=== PATIENT | female | born 1990 | race Caucasian/White ===

== ENCOUNTER 2016-03-31 11:13 | Emergency (ER) | payer MEDICAID ==
[2016-03-31] MEDS ORDERED: Acetaminophen TAB* 325 MG PO ONE (12:35)
[2016-03-31 13:47] VITALS: BP 95/45
--- NOTE | 2016-04-04 21:45 | UC ---
Michelle Tang Michael, scribed for Vi Tucker MD on 03/31/16 at 1242 . FLU HPI - HPI Summary HPI Summary: 25 y/o female comes to [facility] presenting with flu like symptoms that started one day ago after she received her tetanus shot. The pt reports that she always becomes "sick" after getting her tetanus shot. She c/o a fever and at Urgent Care she presents a temperature of 101.9. She also c/o chills, nausea, SOB, myalgia, diaphoresis, chest congestion, PARK, and nasal congestion. The pt denies vomiting. The pt had a flu shot in December. The pt is 28 weeks 7 days gestation age. She is . The LNMP was not recalled by the pt and the due date is 06/18/16 - History of Current Complaint Chief Complaint: UC Stated Complaint: FLU SYMPTOMS Time Seen by Provider: 03/31/16 12:34 Hx Obtained From: Patient, Medical Records Hx Last Menstrual Period: EDC 06/18/2016 Onset/Duration: Sudden Onset, Lasting Days, Still Present Severity Currently: Moderate Severity Initially: Moderate Pain Intensity: 8 Pain Scale Used: 0-10 Numeric Associated Signs & Symptoms: Positive: Fever, Myalgia, Nasal Congestion - chest congestion. diaphoresis. chills. SOB. nausea., Headache. Negative: Vomiting - Allergy/Home Medications Allergies/Adverse Reactions: Allergies Allergy/AdvReac Type Severity Reaction Status Date / Time No Known Allergies Allergy Verified 03/31/16 12:03 Home Medications: Home Medications One-A-Day 03/31/16 [History] PMH/Surg Hx/FS Hx/Imm Hx Endocrine History Of: Denies: Diabetes, Thyroid Disease Cardiovascular History Of: Denies: Cardiac Disorders, Hypertension Respiratory History Of: Reports: Asthma Denies: COPD GI/ History Of: Denies: Ulcer - Surgical History Surgical History: None - Family History Family History: Parents alive and well. Pt denies significant FHx. - Social History Occupation: Student Lives: Alone Alcohol Use: None Substance Use Type: None Smoking Status (MU): Never Smoked Tobacco - Immunization History Most Recent Influenza Vaccination: DECEMBER 2015 Review of Systems Constitutional: Fever, Chills, Other - diaphoresis ENT: Other - nasal congestion. chest congestion. Respiratory: Shortness Of Breath Gastrointestinal: Vomiting - negative, Other - nausea Musculoskeletal: Myalgia All Other Systems Reviewed And Are Negative: Yes Physical Exam Triage Information Reviewed: Yes Vital Signs: Initial Vital Signs Temp 101.9 F 03/31/16 12:06 Pulse 133 03/31/16 12:06 Resp 20 03/31/16 12:06 BP 101/64 03/31/16 12:06 Pulse Ox 100 03/31/16 12:06 Vital Signs Reviewed: Yes - Additional Comments Appearance: Ill-appearing, no pain distress, Well-nourished, Fundal height of 5 cm above umbilicus and I can feel child kicking. Eyes: Conjunctiva clear ENT: TMs Nml. pharyngeal erythema. tonsillar swelling and no exudate. Neck: Supple Respiratory: Lungs clear, Normal breath sounds, no respiratory distress Cardio: RRR, No murmur, pulses normal, brisk capillary refill Musculoskeletal: Strength Intact, ROM intact Neuro: Alert, muscle tone normal Psychological: Normal Skin: Normal Flu Course/Dx - Course Course Of Treatment: Influenza A and B neg. UA with wbc's, sent for culture. FHR 180 - Differential Dx/Diagnosis Differential Diagnosis/HQI/PQRI: Bronchitis, Influenza, Upper Respiratory Infection, Other - UTI Provider Diagnoses: fever. UTI in . third trimester Discharge - Discharge Plan Condition: Stable Disposition: HOME Prescriptions: Cephalexin CAP* [Keflex 500 CAP*] 500 mg PO QID #40 cap Patient Education Materials: Fever in Adults (ED), Urinary Tract Infection in (ED) Forms: *Work Release Referrals: Shelli Seo DO [Primary Care Provider] - Additional Instructions: Your swab was negative for influenza A and B. Your urine showed 75 wbc's which may indicate a urinary infection, which is more serious in , and more serious when there is fever so Dr. Tucker is starting the antibiotic now, Cephalexin 500mg 4x a day for 10 days. They may call you to discontinue this antibiotic if the culture does not show a true infection. You were given acetaminophen (tylenol) 650mg at 12:43pm. You may take this every four hours as needed for fever. Have definite follow up with your OB provider on 04/02/16. Go to the emergency room if you have new or worsening symptoms. Dr. Tucker recommends that you should lie on your left side to increase blood flow to the baby when you are lying down. The baby's heart rate was 180 today in urgent care. The documentation as recorded by the justiceibMichelle samuels Michael accurately reflects the service I personally performed and the decisions made by me, Vi Tucker MD.
== END 2016-03-31 13:47 | disposition home or self-care (01) ==
LOC: UCEAST 11:13
DX: O23.43 Unspecified infection of urinary tract in pregnancy, third trimester (principal); Z3A.28 28 weeks gestation of pregnancy; R50.9 Fever, unspecified
CPT/HCPCS: 81002; 87077; 87086; 87502; 99212; A9270-GY; G0463

== ENCOUNTER 2016-06-17 09:52 | Inpatient (IN) | payer MEDICAID ==
[2016-06-17 10:37] LABS: ROM Internal QC QC Line Present
[2016-06-17 11:15] LABS: Hematocrit 29 % (35-47); Hemoglobin 9.2 g/dl (12.0-16.0); Mean Corpuscular HGB Conc 32 g/dl (31-36); Mean Corpuscular Hemoglobin 26 pg (27-31); Mean Corpuscular Volume 81 fL (80-97); Mean Platelet Volume 8 um3 (7.4-10.4); Red Blood Count 3.52 10^6/ul (4.0-5.4); Red Cell Distribution Width 14 % (10.5-15); White Blood Count 10.8 10^3/ul (3.5-10.8)
[2016-06-17] MEDS ORDERED: Misoprostol TAB* 100 MCG PO ONE (12:04)
[2016-06-17] MEDS ORDERED: Misoprostol TAB* 100 MCG VAGINAL ONE (15:52)
[2016-06-17] MEDS ORDERED: Oxytocin in LR* 20 UNITS/1,000 ML BAG IVPB ONE (20:38)
[2016-06-17] MEDS ORDERED: Oxytocin in LR* 20 UNITS/1,000 ML BAG IVPB SCH (21:00)
[2016-06-18] MEDS ORDERED: OBEPIDURAL* 250 ML ONE (01:09)
[2016-06-18] MEDS ORDERED: Famotidine TAB* 20 MG PO PRN (07:56)
[2016-06-18] MEDS ORDERED: Sodium Citrate/Citric Acid* 15 ML UDC PO PRN (07:56)
[2016-06-18] MEDS ORDERED: EPHEDrine (Pressors)* 50 MG/ML VIAL IV PUSH PRN ×2 (07:56)
[2016-06-18] MEDS ORDERED: Phenylephrine IV* 40 MCG/ML 10 ML SYRINGE IV PUSH PRN ×2 (07:56)
[2016-06-18] MEDS ORDERED: OBEPIDURAL* 250 ML EPIDURAL SCH (08:00)
[2016-06-18] MEDS ORDERED: Ammonia Inhalant* 1 EA AMP ONE (11:15)
[2016-06-18] MEDS ORDERED: Witch Hazel PAD* JAR TOPICAL PRN (11:47)
[2016-06-18] MEDS ORDERED: Acetaminophen TAB* 325 MG PO PRN (11:47)
[2016-06-18] MEDS ORDERED: Dibucaine 1% 28.35 GM TUBE PR PRN (11:47)
[2016-06-18] MEDS ORDERED: Glycerin ADULT SUPP PR PRN (11:47)
[2016-06-18] MEDS ORDERED: oxyCODONE/Acetamin 5/325 MG* TAB PO PRN (11:47)
[2016-06-18] MEDS ORDERED: Oxytocin in LR* 20 UNITS/1,000 ML BAG IVPB SCH (11:48)
[2016-06-18] MEDS: Docusate CAP* 100 MG PO SCH ×2 (14:01→22:30)
[2016-06-18] MEDS: Ibuprofen TAB* 600 MG PO PRN (17:53)
[2016-06-19] MEDS: Ibuprofen TAB* 600 MG PO PRN ×4 (00:39→22:47)
[2016-06-19] MEDS: Docusate CAP* 100 MG PO SCH ×3 (08:15→20:43)
[2016-06-19 09:18] LABS: Hematocrit 28 % (35-47); Hemoglobin 8.8 g/dl (12.0-16.0); Mean Corpuscular HGB Conc 32 g/dl (31-36); Mean Corpuscular Hemoglobin 26 pg (27-31); Mean Corpuscular Volume 82 fL (80-97); Mean Platelet Volume 8 um3 (7.4-10.4); Red Blood Count 3.36 10^6/ul (4.0-5.4); Red Cell Distribution Width 14 % (10.5-15); White Blood Count 16.6 10^3/ul (3.5-10.8)
[2016-06-19] MEDS: Ferrous Gluconate TAB* 324 MG TAB PO SCH ×2 (09:41→20:43)
[2016-06-20] MEDS: Ibuprofen TAB* 600 MG PO PRN ×2 (06:08→12:15)
[2016-06-20 08:07] VITALS: BP 98/57
[2016-06-20] MEDS: Ferrous Gluconate TAB* 324 MG TAB PO SCH (08:50)
[2016-06-20] MEDS: Docusate CAP* 100 MG PO SCH ×2 (08:50→12:15)
--- NOTE | 2016-06-20 13:13 | PTEDU ---
Patient Name: CHELSIE CHI CHELSIE CHI selected video: Follow Me Mum: [employer] Success[employer] to view on 06/20/2016 at 1:12:21 PM from [id number]
== END 2016-06-20 13:47 | disposition home or self-care (01) | DRG 560 ==
LOC: MCHOBOUT 09:52 → MCHOB 10:50
PROVIDERS: ADMIT Midwife; ATTEND Midwife
PROC: 10E0XZZ Delivery of Products of Conception, External Approach (ICD-10-PCS; principal; 2016-06-18)
DX: O99.824 Streptococcus B carrier state complicating childbirth (principal); O99.344 Other mental disorders complicating childbirth; D64.9 Anemia, unspecified; O90.81 Anemia of the puerperium; Z3A.40 40 weeks gestation of pregnancy; Z37.0 Single live birth
CPT/HCPCS: 36415; 84112; 85025; 85027; 86850; 86900; 86901; A9270-GY; S0191

== ENCOUNTER 2017-01-04 09:24 | Emergency (ER) | payer MEDICAID ==
[2017-01-04 09:35] VITALS: BP 108/66
--- NOTE | 2017-01-04 09:40 | UC ---
Respiratory Complaint HPI - HPI Summary HPI Summary: 26 yo female with runny nose/cough/post nasal drip low grade temp x 4 days she [facility] twins at 9 weeks gestation pt is having morning sickness - History of Current Complaint Chief Complaint: UCGeneralIllness Stated Complaint: SINUS CONGESTION Time Seen by Provider: 01/04/17 09:33 Hx Obtained From: Patient Hx Last Menstrual Period: EDC 06/18/2016 Onset/Duration: Sudden Onset, Lasting Days Timing: Constant Severity Initially: Mild Severity Currently: Moderate Pain Intensity: 4 Pain Scale Used: 0-10 Numeric Character: Cough: Nonproductive Aggravating Factors: Nothing Alleviating Factors: Nothing Associated Signs And Symptoms: Positive: Fever, Chills, Nasal Congestion - Allergies/Home Medications Allergies/Adverse Reactions: Allergies Allergy/AdvReac Type Severity Reaction Status Date / Time No Known Allergies Allergy Verified 01/04/17 09:31 Home Medications: Home Medications NK [No Home Medications Reported] 01/04/17 [History Confirmed 01/04/17] PMH/Surg Hx/FS Hx/Imm Hx Previously Healthy: Yes Respiratory History: Asthma, Bronchitis - Surgical History Surgical History: None - Family History Known Family History: Positive: Hypertension, Other - muliplte twins on her dad' s side Family History: Parents alive and well. Pt denies significant FHx. - Social History Alcohol Use: None Substance Use Type: None Smoking Status (MU): Never Smoked Tobacco - Immunization History Most Recent Influenza Vaccination: Not UTD Most Recent Pneumonia Vaccination: never Review of Systems Constitutional: Fever, Chills, Fatigue ENT: Nasal Discharge, Sinus Congestion Respiratory: Cough Gastrointestinal: Nausea Is Patient Immunocompromised?: No All Other Systems Reviewed And Are Negative: Yes Physical Exam Triage Information Reviewed: Yes Appearance: Well-Appearing, No Pain Distress, Well-Nourished Vital Signs: Initial Vital Signs Temp 98.2 F 01/04/17 09:26 Pulse 101 01/04/17 09:26 Resp 16 01/04/17 09:26 BP 108/66 01/04/17 09:26 Pulse Ox 100 01/04/17 09:26 Eyes: Positive: Conjunctiva Clear ENT: Positive: Hearing grossly normal, Nasal congestion, Nasal drainage, TMs normal, Uvula midline. Negative: Pharyngeal erythema, Tonsillar swelling, Tonsillar exudate, Trismus, Muffled voice, Dental tenderness, Sinus tenderness Neck: Positive: Supple, Nontender, No Lymphadenopathy Respiratory: Positive: Lungs clear, Normal breath sounds, No respiratory distress, No accessory muscle use Cardiovascular: Positive: RRR, No Murmur Abdomen Description: Positive: Nontender, No Organomegaly, Soft Musculoskeletal: Positive: Strength Intact, ROM Intact Neurological: Positive: Alert Psychological Exam: Normal Skin Exam: Normal UC Diagnostic Evaluation - Laboratory O2 Sat by Pulse Oximetry: 100 - normal/not hypoxic Diagnostic Studies Comment: RAPID FLU (-). U dip : no ketones Respiratory Course/Dx - Differential Dx/Diagnosis Provider Diagnoses: viral URI. Morning sickness Discharge - Discharge Plan Condition: Stable Disposition: HOME Patient Education Materials: Nausea and Vomiting in (ED), Upper Respiratory Infection (ED) Referrals: Roger Marin MD [Medical Doctor] - Additional Instructions: I suggest: EMETROL (OTC) for nausea vits plus folate (folic acid) start your flonase saline nasal spray 2 x daily warm facial compresses rest tylenol recheck for new or worsening symptoms recheck in 3-4 days if not better
== END 2017-01-04 10:30 | disposition home or self-care (01) ==
LOC: UCEAST 09:24
DX: O99.511 Diseases of the respiratory system complicating pregnancy, first trimester (principal); J06.9 Acute upper respiratory infection, unspecified; O21.9 Vomiting of pregnancy, unspecified; Z3A.09 9 weeks gestation of pregnancy
CPT/HCPCS: 81003; 87502; 99212; G0463

== ENCOUNTER 2017-01-15 07:35 | Emergency (ER) | payer MEDICAID ==
[2017-01-15 07:59] VITALS: BP 102/81
[2017-01-15] MEDS ORDERED: Metoclopramide IV* 5 MG/ML 2 ML VIAL IV SLOW PU ONE (08:10)
[2017-01-15] MEDS ORDERED: NS 0.9% 1000 ML* 1,000 ML IV ONE ×2 (08:11→09:34)
--- NOTE | 2017-01-15 10:17 | UC ---
Harry Tang Benjamin, scribed for Nathaniel Sanchez MD on 01/15/17 at 0810 . General HPI - HPI Summary HPI Summary: 10-week 26yo female c/o N/V/D since last night. 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 Pt reports vomiting 4 times total, and 1 episode of diarrhea. Pt also reports chills and cold sweats last night. Pt also reports loss of appetite. Pt is on Diclegis and metoclopramide. - History of Current Complaint Stated Complaint: VOMITTING Hx Obtained From: Patient Hx Last Menstrual Period: EDC 06/18/2016 Onset/Duration: Sudden Onset, Lasting Hours, Still Present Timing: Constant Onset Severity: Mild Current Severity: None Pain Intensity: 0 Pain Location at: None Associated Signs & Symptoms: Positive: Diarrhea - x1, Nausea, Vomiting - x4, Other - chills - Allergy/Home Medications Allergies/Adverse Reactions: Allergies Allergy/AdvReac Type Severity Reaction Status Date / Time No Known Allergies Allergy Verified 01/15/17 07:59 Home Medications: Home Medications Doxylamine/Pyridoxine(NF) [Diclegis (NF)] 1 tab PO DAILY PRN 01/15/17 [History Confirmed 01/15/17] Metoclopramide HCl 10 mg PO Q8HR 01/15/17 [History Confirmed 01/15/17] PMH/Surg Hx/FS Hx/Imm Hx Previously Healthy: Yes - Surgical History Surgical History: None - Family History Known Family History: Positive: Hypertension, Other - muliplte twins on her dad' s side Family History: Parents alive and well. Pt denies significant FHx. - Social History Occupation: Employed Full-time Lives: With Family Alcohol Use: None Substance Use Type: None Smoking Status (MU): Never Smoked Tobacco - Immunization History Most Recent Influenza Vaccination: DECEMBER 2015 Most Recent Pneumonia Vaccination: never Review of Systems Constitutional: Chills, Other - night sweats Skin: Negative Eyes: Negative ENT: Negative Respiratory: Negative Cardiovascular: Negative Gastrointestinal: Vomiting, Diarrhea, Nausea Genitourinary: Negative Motor: Negative Neurovascular: Negative Musculoskeletal: Negative Neurological: Negative Psychological: Negative All Other Systems Reviewed And Are Negative: Yes Physical Exam Triage Information Reviewed: Yes Appearance: Well-Appearing, No Pain Distress Vital Signs: Initial Vital Signs Temp 98.6 F 01/15/17 07:56 Pulse 114 01/15/17 07:56 Resp 16 01/15/17 07:56 BP 102/81 01/15/17 07:56 Pulse Ox 97 01/15/17 07:56 Vital Signs Reviewed: Yes ENT: Positive: Normal ENT inspection, Pharynx normal Neck: Positive: Supple, Nontender. Negative: Nuchal Rigidity Respiratory: Positive: Chest non-tender, Lungs clear Cardiovascular: Positive: RRR, No Murmur, Pulses Normal Abdomen Description: Positive: Nontender Musculoskeletal: Positive: Strength Intact, ROM Intact Neurological: Positive: Alert, Muscle Tone Normal Psychological: Positive: Normal Response To Family Skin Exam: Normal Re-Evaluation - Re-Evaluation First Eval Re-Evaluation Time: 10:08 Change: Improved Comment: Patient no more NV, and heart rate better. Ambulatory to rest room. Course/Dx - Course Course Of Treatment: Reviewed pts medication and allergy lists. Blood pressure noted. The patient is well hydrated now after IV fluids, and non toxic. Note for work given - Differential Dx - Multi-Symptom Provider Diagnoses: gastroenteritis. dehydration Discharge - Discharge Plan Condition: Good Disposition: HOME Patient Education Materials: Gastroenteritis (ED) Forms: *Work Release Referrals: Nathaniel Mayes MD [Primary Care Provider] - 1 Day The documentation as recorded by the Harry hart Benjamin accurately reflects the service I personally performed and the decisions made by me, Nathaniel Sanchez MD.
== END 2017-01-15 10:40 | disposition home or self-care (01) ==
LOC: UCEAST 07:35
DX: O26.891 Other specified pregnancy related conditions, first trimester (principal); Z3A.10 10 weeks gestation of pregnancy; K52.9 Noninfective gastroenteritis and colitis, unspecified; E86.0 Dehydration
CPT/HCPCS: 87502; 96360; 96361; 96374; 99212; G0463; J2765

== ENCOUNTER 2017-07-22 07:50 | Inpatient (IN) | payer OTHER ==
--- NOTE | 2017-07-22 09:12 | HP ---
General Information - General Information Maternal Age: 26 Grav: 2 Para: 1 SAB: 0 IEA: 0 Estimated Due Date: 08/05/17 Determined By: LMP Gestational Age in Weeks and Days: 38 Weeks and 0 Days Maternal Blood Type and Rh: O Positive - Results this Serology/RPR Result: Non-Reactive Rubella Result: Immune HBsAg Result: Negative HIV Result: Negative GBS Culture Result: Negative Past Medical History Delivery History: Hx Uncomplicated Vaginal Delivery Pertinent Past Medical History: Non-Contributory Pertinent Past Surgical History: None Pertinent Family History: Non-Contributory - Antepartal Records Antepartal Records: Reviewed, Complicated by: - mono/di twins Review of Systems Constitutional: Comfortable CV Complaint: No Respiratory: Shortness of Breath: No Gastrointestinal: No Nausea/Vomiting Genitourinary: No Dysuria, No Bleeding, No Leaking Fluid Musculoskeletal: No Complaint Movement: Normal Exam Allergies/Adverse Reactions: Allergies No Known Allergies Allergy (Verified 01/15/17 07:59) - Measurements Height: 5 ft 6 in Weight: 170 lb Weight in lbs: 170 Body Mass Index (BMI): 27.4 Pre- Weight: 143 lb Weight Gained This : 27 lbs and 0 ozs - Exam Abdomen: No Upper Quadrant Pain Breast: Breast Exam Deferred Extremities: No Edema Heart: Normal Rhythm/Heart Sounds HEENT: No Significant Findings Targeted Exam Findings Cervical Exam: 1cm Effacement: 50% Station: -2 Presenting Part: Vertex Membrane Status: AROM Amniotic Fluid Evaluation: Clear EFM Findings - External Monitor Findings Baseline Heart Rate: 135 - 135 External Monitor Findings: Accelerations Present, No Pattern of Variable or Late Decelerations, Variability Moderate, Baseline Stable Contractions: Irregular Assessment/Plan - Reason for Visit Reason for Visit: @38wks with mono/di twins for induction of labor. Has a 13mo daughter. - Obstetrical Risk Factors Risk Factors Comment: twins - Plan Plan: Induction
[2017-07-22 09:29] LABS: ABS Basophils 0 10^3/ul (0-0.2); ABS Eosinophils 0.1 10^3/ul (0-0.6); ABS Monocytes 0.5 10^3/ul (0-0.8); ABS Neutrophils 6.6 10^3/ul (1.5-7.7); ABS Nucleated RBC 0 10^3/ul; Eosinophil % 1.2 % (0-6); Hematocrit 28 % (35-47); Hemoglobin 8.8 g/dl (12.0-16.0); Lymphocyte % 21.4 % (25-47); Mean Corpuscular HGB Conc 32 g/dl (31-36); Mean Corpuscular Hemoglobin 24 pg (27-31); Mean Corpuscular Volume 76 fL (80-97); Mean Platelet Volume 9.4 um3 (7.4-10.4); Nucleated Red Blood Cells % 0.1; Platelet Count 238 10^3/ul (150-450); Red Blood Count 3.62 10^6/ul (4.0-5.4); Red Cell Distribution Width 16 % (10.5-15); White Blood Count 9.1 10^3/ul (3.5-10.8)
[2017-07-22] MEDS ORDERED: Oxytocin in LR* 20 UNITS/1,000 ML BAG IVPB SCH (16:00)
[2017-07-23] MEDS ORDERED: OBEPIDURAL* 250 ML EPIDURAL ONE (03:12)
[2017-07-23] MEDS ORDERED: Phenylephrine IV* 40 MCG/ML 10 ML SYRINGE IV PUSH PRN ×2 (04:50)
[2017-07-23] MEDS ORDERED: Famotidine TAB* 20 MG PO PRN (04:50)
[2017-07-23] MEDS ORDERED: EPHEDrine (Pressors)* 50 MG/ML VIAL IV PUSH PRN ×2 (04:50)
[2017-07-23] MEDS ORDERED: Sodium Citrate/Citric Acid* 15 ML UDC PO PRN (04:50)
[2017-07-23] MEDS ORDERED: OBEPIDURAL* 250 ML EPIDURAL SCH (05:00)
[2017-07-23] MEDS ORDERED: Promethazine INJ(RESTRICTED)* 25 MG/ML 1 ML VIAL ONE (10:55)
[2017-07-23] MEDS ORDERED: Promethazine INJ(RESTRICTED)* 25 MG/ML 1 ML VIAL IV ONE (11:00)
[2017-07-23] MEDS ORDERED: Acetaminophen TAB* 325 MG PO PRN (14:21)
[2017-07-23] MEDS ORDERED: Misoprostol TAB* 200 MCG PR ONE (14:21)
[2017-07-23] MEDS ORDERED: Witch Hazel PAD* JAR TOPICAL PRN (14:21)
[2017-07-23] MEDS ORDERED: Glycerin ADULT SUPP PR PRN (14:21)
[2017-07-23] MEDS ORDERED: Dibucaine 1% 28.35 GM TUBE PR PRN (14:21)
[2017-07-23] MEDS: Ibuprofen TAB* 600 MG PO PRN ×2 (16:13→22:55)
[2017-07-23] MEDS ORDERED: Simethicone TAB* 80 MG TAB.CHEW PO SCH (17:30)
[2017-07-23] MEDS: Docusate CAP* 100 MG PO SCH (22:55)
[2017-07-24] MEDS: Ibuprofen TAB* 600 MG PO PRN ×3 (04:21→21:33)
[2017-07-24 08:39] LABS: ABS Basophils 0 10^3/ul (0-0.2); ABS Eosinophils 0.2 10^3/ul (0-0.6); ABS Lymphocytes 2.4 10^3/ul (1.0-4.8); ABS Monocytes 0.7 10^3/ul (0-0.8); ABS Neutrophils 8.9 10^3/ul (1.5-7.7); ABS Nucleated RBC 0 10^3/ul; Eosinophil % 1.4 % (0-6); Hematocrit 24 % (35-47); Hemoglobin 7.4 g/dl (12.0-16.0); Lymphocyte % 19.6 % (25-47); Mean Corpuscular HGB Conc 31 g/dl (31-36); Mean Corpuscular Hemoglobin 24 pg (27-31); Mean Corpuscular Volume 77 fL (80-97); Mean Platelet Volume 8.7 um3 (7.4-10.4); Nucleated Red Blood Cells % 0; Platelet Count 217 10^3/ul (150-450); Red Blood Count 3.12 10^6/ul (4.0-5.4); Red Cell Distribution Width 16 % (10.5-15); White Blood Count 12.2 10^3/ul (3.5-10.8)
[2017-07-24] MEDS: Ferrous Gluconate TAB* 324 MG TAB PO SCH ×2 (10:48→21:32)
[2017-07-24] MEDS: Docusate CAP* 100 MG PO SCH ×3 (10:48→21:32)
[2017-07-25 07:39] VITALS: BP 100/68
[2017-07-25] MEDS: Docusate CAP* 100 MG PO SCH (10:10)
[2017-07-25] MEDS: Ibuprofen TAB* 600 MG PO PRN (10:10)
[2017-07-25] MEDS: Ferrous Gluconate TAB* 324 MG TAB PO SCH (10:10)
== END 2017-07-25 11:52 | disposition home or self-care (01) | DRG 560 ==
LOC: MCHOBOUT 07:50 → MCHOB 08:23
PROVIDERS: ADMIT Obstetrics & Gynecology; ATTEND Obstetrics & Gynecology
PROC: 10907ZC Drainage of Amniotic Fluid, Therapeutic from Products of Conception, Via Natural or Artificial Opening (ICD-10-PCS; principal; 2017-07-22)
PROC: 3E033VJ Introduction of Other Hormone into Peripheral Vein, Percutaneous Approach (ICD-10-PCS; 2017-07-22)
PROC: 10E0XZZ Delivery of Products of Conception, External Approach (ICD-10-PCS; 2017-07-22)
PROC: 4A1HX4Z Monitoring of Products of Conception, Cardiac Electrical Activity, External Approach (ICD-10-PCS; 2017-07-22)
DX: O32.8XX2 Maternal care for other malpresentation of fetus, fetus 2 (principal); O30.033 Twin pregnancy, monochorionic/diamniotic, third trimester; Z3A.38 38 weeks gestation of pregnancy; Z37.2 Twins, both liveborn; O90.81 Anemia of the puerperium
CPT/HCPCS: 36415; 85025; 86850; 86900; 86901; 88307; A9270-GY; J2550

== ENCOUNTER 2018-07-11 15:14 | Emergency (ER) | payer OTHER ==
[2018-07-11 15:30] VITALS: BP 110/69
--- NOTE | 2018-07-11 15:38 | UC ---
Skin Complaint HPI - HPI Summary HPI Summary: 27-year-old woman comes in with a chief complaint of a bump just underneath the skin on the back of her neck. She found this yesterday. No fevers no chills no rash. No new shampoos. No ear pain no upper respiratory tract infection symptoms. Has not noticed any other bumps anywhere. - History of Current Complaint Chief Complaint: UCSkin Time Seen by Provider: 07/11/18 15:26 Stated Complaint: BUMP ON NECK Hx Last Menstrual Period: 1 week Pain Intensity: 0 - Allergy/Home Medications Allergies/Adverse Reactions: Allergies Allergy/AdvReac Type Severity Reaction Status Date / Time No Known Allergies Allergy Verified 07/11/18 15:30 PMH/Surg Hx/FS Hx/Imm Hx Previously Healthy: Yes - Surgical History Surgical History: None - Family History Known Family History: Positive: Hypertension, Other - muliplte twins on her dad' s side Family History: Parents alive and well. Pt denies significant FHx. - Social History Alcohol Use: None Substance Use Type: None Smoking Status (MU): Never Smoked Tobacco - Immunization History Most Recent Influenza Vaccination: Fall 2016 Most Recent Pneumonia Vaccination: never Review of Systems All Other Systems Reviewed And Are Negative: Yes Constitutional: Positive: Negative Skin: Positive: Other - SEE HPI Eyes: Positive: Negative ENT: Positive: Negative Respiratory: Positive: Negative Cardiovascular: Positive: Negative Gastrointestinal: Positive: Negative Genitourinary: Positive: Negative Motor: Positive: Negative Neurovascular: Positive: Negative Musculoskeletal: Positive: Negative Neurological: Positive: Negative Psychological: Positive: Negative Is Patient Immunocompromised?: No Physical Exam Triage Information Reviewed: Yes Appearance: Well-Appearing, No Pain Distress, Well-Nourished Vital Signs: Initial Vital Signs Temp 98.5 F 07/11/18 15:27 Pulse 80 07/11/18 15:27 Resp 16 07/11/18 15:27 BP 110/69 07/11/18 15:27 Pulse Ox 99 07/11/18 15:27 Vital Signs Reviewed: Yes Eye Exam: Normal Eyes: Positive: Conjunctiva Clear ENT: Positive: Pharynx normal, TMs normal. Negative: Nasal congestion, Nasal drainage Neck: Positive: Supple, Enlarged Nodes @ - SINGLE MOBILE 5MM NODE RT POSTERIOR UPPER NECK Respiratory: Positive: Lungs clear, Normal breath sounds, No respiratory distress Cardiovascular: Positive: RRR Musculoskeletal: Positive: Strength Intact, ROM Intact Neurological: Positive: Alert Psychological Exam: Normal Psychological: Positive: Normal Response To Family, Age Appropriate Behavior Skin: Positive: Other - No other lymphadenopathy found in neck or supra clavicular. Patient denies any else where. Course/Dx - Course Course Of Treatment: The swelling in the posterior upper cervical skin is mobile feels like it is a swollen lymph node. I do not see any irritation or rash in the scalp. Ear was fine. Did not find any other lymphadenopathy when I palpated the neck and supraclavicular region. Patient herself has checked underneath her arms and in her inguinal areas and says there is no swelling there. Right now the plan is to treat with Keflex 500 mg by mouth 3 times a day for 10 days and have this rechecked with her primary care doctor in 2-3 weeks. I discussed with her that if it does not improve she needs further evaluation to include the possibility of leukemia lymphoma. She told me she'll be calling her primary care doctor today to arrange for follow-up. - Diagnoses Provider Diagnosis: Posterior cervical lymphadenopathy Discharge - Sign-Out/Discharge Documenting (check all that apply): Patient Departure All imaging exams completed and their final reports reviewed: No Studies - Discharge Plan Condition: Stable Disposition: HOME Prescriptions: Cephalexin CAP* [Keflex CAP*] 500 mg PO TID #30 cap Patient Education Materials: Lymphadenopathy (ED) Referrals: Nathaniel Mayes MD [Primary Care Provider] - Additional Instructions: FOLLOW UP WITH YOUR DOCTOR IN 2-3 WEEKS. GET RECHECKED SOONER IF YOUR CONDITION WORSENS OR ANY QUESTIONS OR CONCERNS. - Billing Disposition and Condition Condition: STABLE Disposition: Home
== END 2018-07-11 15:46 | disposition home or self-care (01) ==
LOC: UCEAST 15:14
DX: R59.0 Localized enlarged lymph nodes (principal)
CPT/HCPCS: 99212; G0463

== ENCOUNTER 2020-03-29 00:54 | Inpatient (IN) ==
[2020-03-29] MEDS ORDERED: NS 0.9% 1000 ml BAG 1,000 ML IV ONE ×2 (04:07→05:34)
[2020-03-29] MEDS ORDERED: Ondansetron 4 mg VIAL 2 MG/ML 2 ml VIAL IV ONE (04:07)
[2020-03-29] MEDS ORDERED: Pantoprazole VIAL 40 MG VIAL IV ONE (04:07)
[2020-03-29 04:54] LABS: ABS Eosinophils 0.1 10^3/ul (0-0.6); ABS Monocytes 0.5 10^3/ul (0-0.8); ABS Neutrophils 4.6 10^3/ul (1.5-7.7); Eosinophil % 1.6 %; Hematocrit 46 % (35-47); Hemoglobin 15.9 g/dL (12.0-16.0); Lymphocyte % 36.3 %; Mean Corpuscular HGB Conc 35 g/dL (31-36); Mean Corpuscular Hemoglobin 31 pg (27-31); Mean Corpuscular Volume 91 fL (80-97); Mean Platelet Volume 8.7 fL (7.4-10.4); Platelet Count 262 10^3/uL (150-450); Red Cell Distribution Width 12 % (10-15); White Blood Count 8.3 10^3/uL (3.5-10.8)
[2020-03-29 05:05] LABS: ALT 14 U/L (7-52); Albumin 4.9 g/dL (3.2-5.2); Albumin/Globulin Ratio 1.6 (1-3); Alkaline Phosphatase 70 U/L (34-104); Amylase 24 U/L (29-103); BUN/Creatinine Ratio 41.8 (8-20); Blood Urea Nitrogen 41 mg/dL (6-24); C Reactive Protein 5.72 mg/L (<8.01); CO2 Carbon Dioxide 18 mmol/L (22-32); Calcium 10.9 mg/dL (8.6-10.3); Chloride 90 mmol/L (101-111); EGFR African American 82.4 (>60); EGFR Non-African American 68.1 (>60); Globulin 3.1 g/dL (2-4); Glucose 96 mg/dL (70-100); Lipase 17 U/L (11.0-82.0)
[2020-03-29 05:11] LABS: Anion Gap 10 mmol/L (2-11); HCG Pregnancy < 0.60 mIU/mL; Potassium 4.4 mmol/L (3.5-5.0)
[2020-03-29 05:12] LABS: AST 28 U/L (13-39)
[2020-03-29 05:15] LABS: INR 1.22 (0.82-1.09)
[2020-03-29 05:19] LABS: Sodium 118 mmol/L (135-145)
[2020-03-29 06:00] LABS: Magnesium 1.9 mg/dL (1.9-2.7)
[2020-03-29 07:27] LABS: BUN/Creatinine Ratio 40.9 (8-20); Calcium 8.4 mg/dL (8.6-10.3); EGFR African American 93.3 (>60); EGFR Non-African American 77.1 (>60)
[2020-03-29 10:52] LABS: Urine Appearance Clear; Urine Bilirubin Negative (Negative); Urine Blood Negative (Negative); Urine Color Yellow; Urine Glucose Negative (Negative); Urine Ketones Negative (Negative); Urine Nitrite Negative (Negative); Urine Protein Negative (Negative); Urine Specific Gravity 1.014 (1.010-1.030); Urine Urobilinogen Negative (Negative)
[2020-03-29 11:10] LABS: Urine Bacteria Absent (Absent); Urine Red Blood Cell Trace(0-2/hpf) (Absent); Urine Squamous Epithelial Cell Present (Absent); Urine White Blood Cell 2+(11-20/hpf) (Absent)
[2020-03-29] MEDS: Ondansetron 4 mg VIAL 2 MG/ML 2 ml VIAL IV PRN (12:52)
[2020-03-29 14:25] LABS: BUN/Creatinine Ratio 40.9 (8-20); Calcium 7.9 mg/dL (8.6-10.3); EGFR Non-African American 107.4 (>60); Potassium 3.5 mmol/L (3.5-5.0)
[2020-03-29] MEDS ORDERED: Albuterol HFA INHALER 8 gm MDI INH PRN (18:11)
[2020-03-29 18:38] LABS: Sodium 120 mmol/L (135-145)
[2020-03-29] MEDS ORDERED: Thiamine 100 MG/ML 2 ml VIAL (200 mg) IV ONE (18:49)
[2020-03-29] MEDS ORDERED: Thiamine IV 100 MG in NS 0.9% 50 ML Q24H IV ONE (20:00)
[2020-03-29] MEDS ORDERED: NS 0.9% 50 ML 50 ML ONE (20:20)
[2020-03-29 20:25] LABS: Phosphorus 5.2 mg/dL (2.5-5.0)
[2020-03-29 21:37] LABS: Magnesium 1.6 mg/dL (1.9-2.7)
[2020-03-29] MEDS ORDERED: Magnesium Sulfate IV 3 GM in NS 0.9% 100 ml BAG 100 ML IVPB ONE (21:54)
[2020-03-29 22:12] LABS: BUN/Creatinine Ratio 32.9 (8-20); Calcium 9.1 mg/dL (8.6-10.3); EGFR African American 105.6 (>60); EGFR Non-African American 87.3 (>60); Potassium 4.4 mmol/L (3.5-5.0)
[2020-03-30 05:51] LABS: Hematocrit 41 % (35-47); Hemoglobin 14.3 g/dL (12.0-16.0); Mean Corpuscular HGB Conc 35 g/dL (31-36); Mean Corpuscular Hemoglobin 32 pg (27-31); Mean Corpuscular Volume 91 fL (80-97); Mean Platelet Volume 8.6 fL (7.4-10.4); Platelet Count 198 10^3/uL (150-450); Red Blood Count 4.53 10^6 /uL (3.70-4.87); Red Cell Distribution Width 12 % (10-15); White Blood Count 6.3 10^3/uL (3.5-10.8)
[2020-03-30 06:14] LABS: BUN/Creatinine Ratio 26.4 (8-20); Calcium 9.2 mg/dL (8.6-10.3); EGFR African American 117.6 (>60); EGFR Non-African American 97.2 (>60); Magnesium 2.2 mg/dL (1.9-2.7); Potassium 4.3 mmol/L (3.5-5.0)
[2020-03-30] MEDS: Ondansetron 4 mg VIAL 2 MG/ML 2 ml VIAL IV PRN (06:57)
[2020-03-30] MEDS ORDERED: HYPERTONIC IV ONE ×2 (09:58→11:00)
[2020-03-30] MEDS ORDERED: SODIUM CHLORIDE 3% IV ONE ×2 (09:58→11:00)
[2020-03-30] MEDS: cefTRIAXone 1 gm/50 mL NS BAG 1 GM/50 ML BAG IVPB SCH (12:10)
[2020-03-30 16:53] LABS: BUN/Creatinine Ratio 23.2 (8-20); EGFR African American 123.5 (>60); EGFR Non-African American 102.1 (>60); Potassium 2.9 mmol/L (3.5-5.0)
[2020-03-30 16:55] LABS: Calcium 6.2 mg/dL (8.6-10.3)
[2020-03-30 17:41] LABS: BUN/Creatinine Ratio 24.4 (8-20); Calcium 8.8 mg/dL (8.6-10.3); EGFR African American 101.2 (>60); EGFR Non-African American 83.6 (>60)
[2020-03-31 05:35] LABS: Hematocrit 36 % (35-47); Hemoglobin 12.3 g/dL (12.0-16.0); Mean Corpuscular HGB Conc 34 g/dL (31-36); Mean Corpuscular Hemoglobin 31 pg (27-31); Mean Corpuscular Volume 92 fL (80-97); Mean Platelet Volume 7.8 fL (7.4-10.4); Platelet Count 176 10^3/uL (150-450); Red Blood Count 3.93 10^6 /uL (3.70-4.87); Red Cell Distribution Width 12 % (10-15); White Blood Count 4.7 10^3/uL (3.5-10.8)
[2020-03-31] MEDS: Saline FLUSH-CENTRAL 10 ML SYRINGE CENT\\PICC SCH ×2 (05:45→18:28)
[2020-03-31 05:53] LABS: BUN/Creatinine Ratio 24.2 (8-20); Calcium 8.9 mg/dL (8.6-10.3); EGFR African American 139.7 (>60); EGFR Non-African American 115.5 (>60); Potassium 4.5 mmol/L (3.5-5.0)
[2020-03-31] MEDS ORDERED: [UNRECOGNIZED DRUG - OTHER] INJ ONE (08:20)
[2020-03-31] MEDS ORDERED: Cosyntropin 0.25 MG VIAL IV ONE (09:00)
[2020-03-31] MEDS: cefTRIAXone 1 gm/50 mL NS BAG 1 GM/50 ML BAG IVPB SCH (10:15)
[2020-03-31] MEDS ORDERED: Dextran 70/Hypromellose Tears Eye Drops 15 ml BTL (for Artificials Tears) BOTH EYES PRN (17:56)
[2020-03-31] MEDS: Hydrocortisone INJ 100 MG/2ML 2 ML VIAL IV SCH (18:28)
[2020-04-01] MEDS: Saline FLUSH-CENTRAL 10 ML SYRINGE CENT\\PICC SCH ×2 (05:09→17:23)
[2020-04-01] MEDS: Hydrocortisone INJ 100 MG/2ML 2 ML VIAL IV SCH ×2 (05:09→17:22)
[2020-04-01 05:36] LABS: ABS Eosinophils 0.1 10^3/ul (0-0.6); ABS Lymphocytes 1.6 10^3/ul (1.0-4.8); ABS Monocytes 0.3 10^3/ul (0-0.8); Eosinophil % 1.8 %; Hematocrit 36 % (35-47); Hemoglobin 12.1 g/dL (12.0-16.0); Lymphocyte % 40.5 %; Mean Corpuscular HGB Conc 34 g/dL (31-36); Mean Corpuscular Hemoglobin 31 pg (27-31); Mean Corpuscular Volume 92 fL (80-97); Mean Platelet Volume 8.1 fL (7.4-10.4); Nucleated Red Blood Cells % 0.1; Platelet Count 190 10^3/uL (150-450); Red Blood Count 3.91 10^6 /uL (3.70-4.87); Red Cell Distribution Width 12 % (10-15); White Blood Count 3.9 10^3/uL (3.5-10.8)
[2020-04-01 05:52] LABS: BUN/Creatinine Ratio 16.7 (8-20); Calcium 9.1 mg/dL (8.6-10.3); EGFR African American 145.1 (>60); EGFR Non-African American 119.9 (>60); Potassium 4.5 mmol/L (3.5-5.0)
[2020-04-01] MEDS: cefTRIAXone 1 gm/50 mL NS BAG 1 GM/50 ML BAG IVPB SCH (10:33)
[2020-04-02] MEDS: Hydrocortisone INJ 100 MG/2ML 2 ML VIAL IV SCH (06:08)
[2020-04-02] MEDS: Saline FLUSH-CENTRAL 10 ML SYRINGE CENT\\PICC SCH (06:09)
[2020-04-02 07:02] LABS: BUN/Creatinine Ratio 12.2 (8-20); Calcium 8.8 mg/dL (8.6-10.3); EGFR African American 183.3 (>60); EGFR Non-African American 151.5 (>60); Potassium 3.7 mmol/L (3.5-5.0)
[2020-04-02] MEDS: cefTRIAXone 1 gm/50 mL NS BAG 1 GM/50 ML BAG IVPB SCH (08:46)
[2020-04-02 11:35] VITALS: BP 96/62
== END 2020-04-02 14:30 | disposition home or self-care (01) | DRG 424 ==
LOC: ED 00:54 → ICU 10:32 → MEDTELE 04-01 12:15
PROVIDERS: ADMIT Internal Medicine; ATTEND Internal Medicine

== ENCOUNTER 2022-07-11 22:00 | Inpatient (IN) ==
[2022-07-11] MEDS ORDERED: Lactated Ringers 1000 ml BAG 1,000 ML IV ONE ×2 (22:35)
[2022-07-11] MEDS ORDERED: Ondansetron 4 mg VIAL 2 MG/ML 2 ml VIAL IV ONE (22:35)
[2022-07-11 22:57] LABS: ABS Lymphocytes 0.9 10^3/uL (1.0-4.8); ABS Monocytes 0.2 10^3/uL (0.0-0.9); Eosinophil % 0.5 %; Hematocrit 42.8 % (35-45); Hemoglobin 14.8 g/dL (11.5-14.3); Lymphocyte % 14.6 %; Mean Corpuscular Hemoglobin 31.4 pg (27-33); Mean Corpuscular Hgb Conc 34.5 g/dL (31-36); Mean Corpuscular Volume 90.8 fL (80-97); Mean Platelet Volume 7.5 fL (7.5-11.2); Platelet Count 215 10^3/uL (150-450); Red Blood Count 4.72 10^6/uL (3.63-4.92); White Blood Count 6.2 10^3/uL (3.8-11.8)
[2022-07-11 23:24] LABS: ALT 14 U/L (7-52); AST 20 U/L (13-39); Albumin 4.7 g/dL (3.2-5.2); Alkaline Phosphatase 56 U/L (35-149); Anion Gap 8 mmol/L (2-16); Blood Urea Nitrogen 16 mg/dL (6-24); C Reactive Protein 6.95 mg/L (<8.01); CO2 Carbon Dioxide 24 mmol/L (22-32); Calcium 9.5 mg/dL (8.6-10.3); Chloride 106 mmol/L (101-111); Creatine Kinase 151 U/L (10-223); Creatinine, Serum 0.85 mg/dL (0.51-0.95); Globulin 2.4 g/dL (2-4); Glucose 91 mg/dL (70-100); Lipase < 10 U/L (11.0-82.0); Magnesium 1.4 mg/dL (1.9-2.7); Potassium 3.7 mmol/L (3.5-5.0); Sodium 138 mmol/L (135-145); Total Protein 7.1 g/dL (6.4-8.9); eGFR CKD-EPI 95.1 (>60)
[2022-07-11 23:30] LABS: HCG Pregnancy < 0.60 mIU/mL
[2022-07-11] MEDS ORDERED: Iohexol 350 (CONTRAST) 500 ML MDV IV ONE (23:47)
[2022-07-12] MEDS ORDERED: Lactated Ringers 1000 ml BAG 1,000 ML IV ONE (00:38)
[2022-07-12] MEDS ORDERED: Hydrocortisone INJ 100 MG/2ML 2 ML VIAL IV ONE (00:43)
[2022-07-12] MEDS ORDERED: Acetaminophen IV 1 GM/100ML 1,000 MG/100 ML BAG IV ONE (01:07)
[2022-07-12] MEDS ORDERED: Ondansetron 4 mg VIAL 2 MG/ML 2 ml VIAL IV ONE (01:12)
[2022-07-12] MEDS ORDERED: Piperacillin/Tazobac ADVAN 3.375 GM in NS 0.9% 100 ml BAG 100 ML IV ONE (01:48)
[2022-07-12] MEDS: Hydrocortisone INJ 100 MG/2ML 2 ML VIAL IV SCH ×2 (03:16→10:07)
[2022-07-12] MEDS ORDERED: Ondansetron 4 mg VIAL 2 MG/ML 2 ml VIAL IV PRN (03:22)
[2022-07-12] MEDS ORDERED: Magnesium Sulfate IV 3 GM in NS 0.9% 100 ml BAG 100 ML IVPB ONE (03:23)
[2022-07-12] MEDS ORDERED: Acetaminophen IV 1 GM/100ML 1,000 MG/100 ML BAG IV PRN (03:30)
[2022-07-12] MEDS ORDERED: NS 0.9% 1000 ml BAG 1,000 ML IV SCH ×2 (03:30→03:41)
[2022-07-12 05:48] LABS: ABS Lymphocytes 0.3 10^3/uL (1.0-4.8); ABS Monocytes 0.1 10^3/uL (0.0-0.9); ABS Neutrophils 4.7 10^3/uL (1.5-7.6); Eosinophil % 0.1 %; Hematocrit 34.4 % (35-45); Hemoglobin 12.1 g/dL (11.5-14.3); Lymphocyte % 6.1 %; Mean Corpuscular Hemoglobin 32.1 pg (27-33); Mean Corpuscular Hgb Conc 35.2 g/dL (31-36); Mean Corpuscular Volume 91.1 fL (80-97); Mean Platelet Volume 7.7 fL (7.5-11.2); Platelet Count 202 10^3/uL (150-450); Red Blood Count 3.78 10^6/uL (3.63-4.92); Red Cell Distribution Width 11.9 % (12-17); White Blood Count 5.1 10^3/uL (3.8-11.8)
[2022-07-12 06:26] LABS: Albumin 3.6 g/dL (3.2-5.2); Albumin/Globulin Ratio 1.9 (1-3); Calcium 8.3 mg/dL (8.6-10.3); Creatinine, Serum 0.77 mg/dL (0.51-0.95); Globulin 1.9 g/dL (2-4); Magnesium 2.9 mg/dL (1.9-2.7); Potassium 3.6 mmol/L (3.5-5.0); Total Bilirubin 0.8 mg/dL (0.2-1.0); Total Protein 5.5 g/dL (6.4-8.9)
[2022-07-12] MEDS ORDERED: Hydrocortisone INJ 100 MG VIAL IV SCH (10:00)
[2022-07-12 13:22] VITALS: BP 100/64
[2022-07-13 18:04] LABS: ACTH 1198 pg/mL
[2022-07-18 14:33] LABS: Renin <0.6 ng/mL/h
== END 2022-07-12 13:59 | disposition home or self-care (01) | DRG 424 ==
LOC: ED 22:00 → EDHOLD 22:00 → SUATTDRO 07-12 01:52 → ICU 07-12 05:50
PROVIDERS: ADMIT Internal Medicine; ATTEND Internal Medicine Critical Care Medicine

== ENCOUNTER 2023-06-27 07:59 | Observation (INO) ==
[2023-06-27] MEDS: Lactated Ringers 1000 ml BAG 1,000 ML IV ONE ×2 (08:41→10:34)
[2023-06-27] MEDS: cefTRIAXone 1 gm/50 mL D5W 1 GM/50 ML BAG IV ONE (08:46)
[2023-06-27] MEDS: Hydrocortisone INJ 100 MG/2ML 2 ML VIAL IV ONE (08:46)
[2023-06-27 08:58] LABS: ABS Eosinophils 0.1 10^3/uL (0.0-0.5); ABS Lymphocytes 2.3 10^3/uL (1.0-4.8); ABS Monocytes 0.6 10^3/uL (0.0-0.9); ABS Neutrophils 8.3 10^3/uL (1.5-7.6); ABS Nucleated RBC 0.01 10^3/ul; Eosinophil % 0.6 %; Hematocrit 40.9 % (35-45); Hemoglobin 14.1 g/dL (11.5-14.3); Lymphocyte % 20.6 %; Mean Corpuscular Hemoglobin 31.8 pg (27-33); Mean Corpuscular Hgb Conc 34.5 g/dL (31-36); Mean Corpuscular Volume 92.1 fL (80-97); Mean Platelet Volume 7.4 fL (7.5-11.2); Platelet Count 294 10^3/uL (150-450); Red Blood Count 4.44 10^6/uL (3.63-4.92); Red Cell Distribution Width 11.8 % (12-17); White Blood Count 11.3 10^3/uL (3.8-11.8)
[2023-06-27 09:00] LABS: Rapid Strep Molecular Positive (Negative)
[2023-06-27 09:46] LABS: ALT 14 U/L (7-52); AST 21 U/L (13-39); Albumin 4.9 g/dL (3.2-5.2); Albumin/Globulin Ratio 1.7 (1-3); Alkaline Phosphatase 75 U/L (35-149); Anion Gap 10 mmol/L (2-16); Blood Urea Nitrogen 12 mg/dL (6-24); CO2 Carbon Dioxide 25 mmol/L (22-32); Calcium 9.9 mg/dL (8.6-10.3); Chloride 99 mmol/L (101-111); Creatinine, Serum 0.96 mg/dL (0.51-0.95); Globulin 2.9 g/dL (2-4); Glucose 87 mg/dL (70-100); Potassium 3.7 mmol/L (3.5-5.0); Sodium 134 mmol/L (135-145); Total Bilirubin 1.3 mg/dL (0.2-1.0); Total Protein 7.8 g/dL (6.4-8.9); eGFR CKD-EPI 81.6 (>60)
[2023-06-27 09:52] LABS: HCG Pregnancy < 0.60 mIU/mL
[2023-06-27 10:16] LABS: Urine Appearance Clear; Urine Bilirubin Negative (Negative); Urine Blood Negative (Negative); Urine Color Yellow; Urine Glucose Negative (Negative); Urine Ketones Negative (Negative); Urine Nitrite Negative (Negative); Urine Protein Negative (Negative); Urine Specific Gravity 1.023 (1.002-1.030); Urine Urobilinogen 2+ (Negative)
[2023-06-27] MEDS: Iohexol 300 (CONTRAST) 10 ML SDV IV ONE (10:28)
[2023-06-27] MEDS: Morphine 4 MG/ML VIAL (1 ml) IV ONE (11:54)
[2023-06-27] MEDS ORDERED: Morphine 2 MG/ML SYRINGE IV PRN (12:47)
[2023-06-27] MEDS: Lactated Ringers 1000 ml BAG 1,000 ML IV SCH (13:41)
[2023-06-27] MEDS ORDERED: Hydrocortisone INJ 100 MG/2ML 2 ML VIAL IV SCH (14:00)
[2023-06-27] MEDS: Hydrocortisone INJ 100 MG/2ML 2 ML VIAL IV SCH (14:16)
[2023-06-28] MEDS: Ondansetron ODT 4 mg TAB 4 MG TAB SL PRN (02:03)
[2023-06-28] MEDS: Acetaminophen IV 1 GM/100ML 1,000 MG/100 ML BAG IV PRN (02:04)
[2023-06-28 06:42] LABS: ABS Lymphocytes 0.8 10^3/uL (1.0-4.8); ABS Monocytes 0.3 10^3/uL (0.0-0.9); ABS Neutrophils 9.4 10^3/uL (1.5-7.6); Hematocrit 34.7 % (35-45); Lymphocyte % 7.3 %; Mean Corpuscular Hemoglobin 31.9 pg (27-33); Mean Corpuscular Hgb Conc 34.6 g/dL (31-36); Mean Corpuscular Volume 92.2 fL (80-97); Mean Platelet Volume 7.6 fL (7.5-11.2); Platelet Count 252 10^3/uL (150-450); Red Blood Count 3.76 10^6/uL (3.63-4.92); White Blood Count 10.4 10^3/uL (3.8-11.8)
[2023-06-28 07:15] LABS: Albumin 3.6 g/dL (3.2-5.2); Albumin/Globulin Ratio 1.6 (1-3); Calcium 8.8 mg/dL (8.6-10.3); Creatinine, Serum 0.52 mg/dL (0.51-0.95); Globulin 2.2 g/dL (2-4); Potassium 3.7 mmol/L (3.5-5.0); Total Bilirubin 0.6 mg/dL (0.2-1.0); Total Protein 5.8 g/dL (6.4-8.9); eGFR CKD-EPI 128.1 (>60)
[2023-06-28] MEDS: cefTRIAXone 1 gm/50 mL D5W 1 GM/50 ML BAG IV SCH (07:46)
[2023-06-29 09:35] LABS: Albumin 3.6 g/dL (3.2-5.2); Albumin/Globulin Ratio 1.6 (1-3); Calcium 8.8 mg/dL (8.6-10.3); Creatinine, Serum 0.6 mg/dL (0.51-0.95); Globulin 2.3 g/dL (2-4); Potassium 3.4 mmol/L (3.5-5.0); Total Bilirubin 0.3 mg/dL (0.2-1.0); Total Protein 5.9 g/dL (6.4-8.9); eGFR CKD-EPI 123.8 (>60)
[2023-06-29] MEDS: Amoxicillin/Clavul 875/125 TAB (Augmentin 875 tab) PO SCH (11:10)
[2023-06-29] MEDS: Potassium Chlor 20 meq TAB.ER PO SCH (18:19)
[2023-06-29] MEDS: Hydrocortisone INJ 100 MG/2ML 2 ML VIAL IV SCH (19:51)
[2023-06-30 07:12] LABS: Albumin 3.2 g/dL (3.2-5.2); Albumin/Globulin Ratio 1.6 (1-3); Calcium 8.4 mg/dL (8.6-10.3); Creatinine, Serum 0.56 mg/dL (0.51-0.95); Potassium 3.4 mmol/L (3.5-5.0); Total Bilirubin 0.2 mg/dL (0.2-1.0); Total Protein 5.2 g/dL (6.4-8.9); eGFR CKD-EPI 125.8 (>60)
[2023-06-30 09:41] VITALS: BP 107/77
== END 2023-06-30 11:30 | disposition home or self-care (01) ==
LOC: ED 07:59 → EDHOLD 07:59 → MEDTELE 14:57
PROVIDERS: ADMIT Internal Medicine; ATTEND Internal Medicine